=== PATIENT | female | born 1945 ===

== ENCOUNTER 2018-11-01 01:45 | Outpatient (CLI) | payer MEDICARE | END 2018-11-01 23:59 | disposition home or self-care (01) | LOC: DIABETIC 01:45 | PROVIDERS: ATTEND Specialist | DX: E11.9 Type 2 diabetes mellitus without complications (principal); Z79.82 Long term (current) use of aspirin | CPT/HCPCS: G0108 ==

== ENCOUNTER 2018-12-03 02:19 | Outpatient (CLI) | payer MEDICARE | END 2018-12-03 23:59 | disposition home or self-care (01) | LOC: DIABETIC 02:19 | PROVIDERS: ATTEND Specialist | DX: E11.9 Type 2 diabetes mellitus without complications (principal); Z79.82 Long term (current) use of aspirin | CPT/HCPCS: G0108 ==